=== PATIENT | male | born 2000 | race African-American/Black ===

== ENCOUNTER 2021-08-29 15:19 | Emergency (ER) | payer MEDICAID ==
[~2021-08-29] VITALS: Ht 172.7 cm; Wt 73.0 kg
[2021-08-29] MEDS ORDERED: TETANUS, DIPHTHERIA, PERTUSSIS VAC/PF 0.5ML (>10YR OLD) IM ONE (17:00)
[2021-08-29] MEDS ORDERED: LIDOCAINE HCL/EPINEPHRINE 1%-EPI 1:100,000 20 ML VIAL INFIL ONE (17:00)
[2021-08-29] MEDS ORDERED: BACITRACIN ZINC OINT UDPKT TOP ONE (17:00)
[2021-08-29] MEDS ORDERED: IBUPROFEN 600MG TABLET PO ONE (17:00)
[2021-08-29] MEDS ORDERED: HYDROCODONE/ACETAMINOPHEN 5/325MG TABLET PO STA (17:44)
[2021-08-29 17:57] VITALS: BP 132/82
[2021-08-29] MEDS ORDERED: CEPHALEXIN 250MG CAPSULE PO NR (18:45)
[2021-08-29] MEDS ORDERED: IBUP-2029 PO (18:55)
[2021-08-29] MEDS ORDERED: HYDR-4001 PO (18:55)
[2021-08-29] MEDS ORDERED: CEPH500C2 PO (18:55)
== END 2021-08-29 19:36 | disposition home or self-care (01) ==
LOC: ER 15:19
DX: S71.132A Puncture wound without foreign body, left thigh, initial encounter (principal); X58.XXXA Exposure to other specified factors, initial encounter; Y93.89 Activity, other specified; Y92.89 Other specified places as the place of occurrence of the external cause; Y99.8 Other external cause status
CPT/HCPCS: 73562; 90471; 90715; 99284; J3490; Z7610